=== PATIENT | male | born 1970 | race Caucasian/White ===

== ENCOUNTER 2020-02-15 16:40 | Emergency (ER) | payer MEDICAID, SELFPAY ==
[~2020-02-15] VITALS: Ht 167.6 cm; Wt 63.5 kg
[2020-02-15 16:44] VITALS: Ht 167.6 cm; Wt 63.5 kg
[2020-02-15 20:04] VITALS: BP 127/87
== END 2020-02-15 20:04 | disposition home or self-care (01) ==
LOC: ED 16:40
DX: U07.1 COVID-19 (principal); I10 Essential (primary) hypertension; E11.9 Type 2 diabetes mellitus without complications
CPT/HCPCS: U0003